=== PATIENT | female | born 1950 | race Caucasian/White ===

== ENCOUNTER 2020-09-11 06:43 | Outpatient (CLI) | payer MEDICARE, OTHER ==
[2020-09-11] MEDS ORDERED: REGADENOSON 0.4 MG/5 ML SYRINGE ONE (07:44)
== END 2020-09-12 23:59 | disposition home or self-care (01) ==
LOC: CVU 06:43 → CFH 23:59
PROVIDERS: ATTEND Internal Medicine Cardiovascular Disease
DX: I35.8 Other nonrheumatic aortic valve disorders (principal); R07.89 Other chest pain; R06.02 Shortness of breath; R55 Syncope and collapse
CPT/HCPCS: 78452; 93017; 93306; 93356; A9502; J2785